=== PATIENT | female | born 1990 | race Caucasian/White ===

== ENCOUNTER 2017-12-24 14:01 | Emergency (ER) | END 2017-12-24 17:01 | disposition home or self-care (01) ==

== ENCOUNTER → 2018-03-27 | Outpatient (CLI) | END | disposition home or self-care (01) ==

== ENCOUNTER 2018-06-05 19:17 | Emergency (ER) | payer MEDICAID, OTHER ==
[~2018-06-05] VITALS: Ht 167.6 cm; Wt 80.8 kg
[~2018-06-05 19:17] MED LIST: CALC600T5 PO; CIPR500T4 PO; NITR-58 PO; PHEN-538 PO; PREN-39 PO
[2018-06-05 19:48] VITALS: Ht 167.6 cm; Wt 80.8 kg
[2018-06-05] MEDS ORDERED: GUAI-637 PO (22:22)
[2018-06-05] MEDS ORDERED: SODI126M NASAL (22:22)
[2018-06-05] MEDS ORDERED: ACET500C5 PO (22:22)
[2018-06-05 22:30] VITALS: BP 125/77; PULSE 74; RESP 16
--- NOTE | 2018-06-06 02:20 | ERD ---
ER Documentation Chief Complaint Chief Complaint cough/fever x 2 days, states 17 weeks HPI 28-year-old female who is approximately 17 weeks presents the ED complaining of cough and subjective fever times 2 days. Patient did not check her temperature at home. She took Tylenol for fever, last dose was at 6 PM, 2 hours ago. Patient states that she is coughing so much, now she has pelvic pain. She is concerned about the fetus. Patient is , LMP 01/31/2018. Denies history of asthma. Denies any other medical history. Denies shortness of breath. Denies abdominal pain, vomiting, or diarrhea. Denies vaginal bleeding. ROS All systems reviewed and are negative except as per history of present illness. Medications Home Meds Active Scripts Guaifenesin* (Robitussin*) 100 Mg/5 Ml Syrup, 200 MG PO Q6H PRN for COUGH, #120 ML Prov:VLADISLAV PITTS NP 06/05/18 Sodium Chloride (Saline Nasal Mist) 126 Ml Mist, 2 SPRAY NASAL Q2H PRN for NASAL CONGESTION, #1 BOTTLE Prov:VLADISLAV PITTS NP 06/05/18 Acetaminophen* (Tylophen*) 500 Mg Capsule, 1 CAP PO Q6H PRN for PAIN AND OR ELEVATED TEMP, #20 CAP Prov:VLADISLAV PITTS NP 06/05/18 Nitrofurantoin Monohyd Macrocr* (Macrobid*) 100 Mg Capsr, 100 MG PO BID for 5 Days, CAP Prov:LISA MAE PA-C 12/24/17 Phenazopyridine Hcl* (Pyridium*) 200 Mg Tab, 200 MG PO TID PRN for URINARY PAIN, #6 TAB Prov:RADHA ASENCIO NP 11/01/15 Ciprofloxacin Hcl* (Ciprofloxacin Hcl*) 500 Mg Tablet, 500 MG PO BID for 7 Days, TAB Prov:RADHA ASENCIO NP 11/01/15 Nitrofurantoin Monohyd Macrocr* (Macrobid*) 100 Mg Capsr, 100 MG PO BID for 7 Days, CAP Prov:RADHA ASENCIO NP 01/26/15 Reported Medications Calcium Carbonate (CALCIUM) 600 Mg Tablet, 600 MG PO DAILY 04/03/13 Vits W-Ca,Fe,Fa(<1MG) ( Vitamins) 1 Tab Tablet, 1 TAB PO DAILY 04/03/13 Allergies Allergies: Coded Allergies: aspirin (Verified Allergy, Unknown, FACE SWELLS, 01/25/15) PMhx/Soc History of Surgery: Yes (gallbladder removed) Anesthesia Reaction: No Hx Neurological Disorder: No Hx Respiratory Disorders: No Hx Cardiac Disorders: No Hx Psychiatric Problems: No Hx Miscellaneous Medical Probl: No Hx Alcohol Use: Yes (occasional) Hx Substance Use: No Hx Tobacco Use: No Smoking Status: Never smoker Physical Exam Vitals Vital Signs Date Temp Pulse Resp B/P (MAP) Pulse Ox O2 O2 Flow FiO2 Time Delivery Rate 06/05/18 98.3 74 16 125/77 100 Room Air 22:30 (93) 06/05/18 99.8 107 20 130/77 100 19:48 (94) Physical Exam General: Well-developed, well-nourished, conscious and coherent, in no distress Skin: Warm and dry without rash, good texture and turgor Head: Normocephalic without evidence of trauma Eyes: Sclera and conjunctivae normal; pupils equal, round, and reactive to light; extraocular movements are intact Ears: Canals are patent. Tympanic membranes are clear Nose/Face: Clear rhinorrhea Mouth/throat: Mucous membranes are moist. Posterior pharynx clear without erythema or exudates Neck: Supple without meningismus or adenopathy. Carotids are equal. Trachea midline. No bruits or JVD Chest: Normal AP diameter. Good expansion without retractions. Nontender. Lungs are clear to auscultate bilaterally with good tidal volume Heart: Regular rate and rhythm. No murmur, rub, or gallops heard Abdomen: Soft and nontender without masses, guarding, or rebound. Bowel sounds are active. No hepatosplenomegaly Extremities: Full range of motion. Good strength bilaterally. No erythema, ecchymosis, or edema. Peripheral pulses are intact. Sensation intact Neuro: Alert and oriented 4, GCS 15. Cranial nerves grossly intact. Moves all extremities. Speech clear. Gait normal Results 24 hrs PROCEDURE: US OB. CLINICAL INDICATION: Pelvic pain TECHNIQUE: Transabdominal obstetrical sonographic evaluation was performed. COMPARISON: Obstetrical sonogram dated 05/03/2018. FINDINGS: There is a single living intrauterine gestation with variable presentation and posterior placenta. There is no evidence of placenta previa or abruption. There is a moderate amount of amniotic fluid. heart rate of 157 beats per minute was detected during this examination. BPD = 4 cm, 18 weeks and 0 day HC = 14.3 cm, 17 weeks and 4 days AC = 11.8 cm, 17 weeks and 4 days FL = 2.4 cm, 17 weeks and 2 days Based on four parameters of biparietal diameter, head circumference, abdominal circumference and femoral head, estimated gestational age only based on this study is 17 weeks and 4 days +/- 1 week and 2 days. Estimated date of confinement based on this examination is 11/09/2018. Estimated weight is 194 +/- 29 grams, at 21st percentile based on this examination. IMPRESSION: 1. Single living intrauterine gestation with estimated gestational age of 17 weeks and 4 days +/- 1 week and 2 days, as above. RPTAT:HAJM Physician Pia Date Time Electronically viewed and signed by Luh Candelario Physician on 06/05/2018 22:03 RM/ CC: VLADISLAV PITTS. CODING ASSISTANT Procedures/MDM Well-appearing 28-year-old female presents the ED with cough and subjective fever times 2 days. Patient is currently afebrile, in no respiratory distress. Lungs are clear to auscultate. I doubt that patient has pneumonia or bronchitis. Likely patient's symptoms are result of viral upper respiratory infection. Patient is approximately 17 weeks , complaining of pelvic pain due to cough. OB ultrasound was obtained, which showed normal intrauterine with healthy heart rate. I doubt threatened . Patient is reassured. Patient appears well, stable for discharge and outpatient management. Medical decision making shared with patient and family. Education provided to patient and family. Patient and family expressed understanding of the plan. Medications on discharge: Tylenol, saline nasal spray, Robitussin. Follow-up: Primary care provider in 2-3 days or return to ED if worse. Disclaimer: Inadvertent spelling and grammatical errors are likely due to EHR/dictation software use and do not reflect on the overall quality of patient care. Also, please note that the electronic time recorded on this note does not necessarily reflect the actual time of the patient encounter. Departure Diagnosis: Primary Impression: Pelvic pain affecting Additional Impression: URI (upper respiratory infection) Condition: Stable Patient Instructions: Adult Self-Care for Colds, Pelvic Pain In : Unclear (2-3 Trimester) Referrals: [facility] YOU HAVE RECEIVED A MEDICAL SCREENING EXAM AND THE RESULTS INDICATE THAT YOU DO NOT HAVE A CONDITION THAT REQUIRES URGENT TREATMENT IN THE EMERGENCY DEPARTMENT. FURTHER EVALUATION AND TREATMENT OF YOUR CONDITION CAN WAIT UNTIL YOU ARE SEEN IN YOUR DOCTORS OFFICE WITHIN THE NEXT 1-2 DAYS. IT IS YOUR RESPONSIBILITY TO MAKE AN APPOINTMENT FOR FOLOW-UP CARE. IF YOU HAVE A PRIMARY DOCTOR --you should call your primary doctor and schedule an appointment IF YOU DO NOT HAVE A PRIMARY DOCTOR YOU CAN CALL OUR PHYSICIAN REFERRAL HOTLINE AT IF YOU CAN NOT AFFORD TO SEE A PHYSICIAN YOU CAN CHOSE FROM THE FOLLOWING [facility] [address] [facility] [address] [facility] [facility] [address] [facility] [address] [facility] [address] [facility] [facility]. [address] Additional Instructions: Call your primary care doctor TOMORROW for an appointment during the next 2-3 days.See the doctor sooner or return here if your condition worsens before your appointment time. VLADISLAV PITTS NP Jun 06, 2018 02:20
== END 2018-06-05 22:43 | disposition home or self-care (01) ==
LOC: FTE 19:17
DX: O26.892 Other specified pregnancy related conditions, second trimester (principal); R40.2412 Glasgow coma scale score 13-15, at arrival to emergency department; O99.512 Diseases of the respiratory system complicating pregnancy, second trimester; R10.2 Pelvic and perineal pain; Z3A.17 17 weeks gestation of pregnancy
CPT/HCPCS: 76805

== ENCOUNTER 2018-11-04 20:40 | Outpatient (CLI) | payer OTHER ==
[~2018-11-04] VITALS: Ht 170.2 cm; Wt 94.7 kg
[~2018-11-04 20:40] MED LIST changes: +ACET500C5 PO; +GUAI-637 PO; +SODI126M NASAL
[2018-11-04 21:00] VITALS: BP 134/79; PULSE 86; RESP 20; Ht 170.2 cm; Wt 94.7 kg
--- NOTE | 2018-11-05 00:59 | PN ---
Triage Information Date/Time 11/05/2018 Reason for visit: Patient self-referred herself to OB triage for episodes of diarrhea times half a day which stopped spontaneously Weeks of Gestation 39 weeks and 3 days /Para 2 para 1 Diabetes: none Hypertention: none Objective Heart Rate: 140's Heart Rate Comments Active Contractions: >10 Minutes Apart Exam Cervix is 3040% effaced 2 cm open posterior and firm Results/Medications Imaging Results Biophysical profile 8 out of 8. Disposition: Discharge Assessment/Plan Patient did not have cervical change after 2 hours of walking with almost total cessation of contractions She was not complaining of diarrhea anymore Decision was made to follow patient as outpatient RIANA MACK MD November 05, 2018 00:59
--- NOTE | 2018-11-05 01:36 | TRIAGE ---
OB Triage Datetime Report Generated by CPN: 11/05/2018 01:36 Datetime: 11/05/2018 01:05 Stage of : OB Triage Datetime: 11/05/2018 00:55 Vaginal Exam Dilatation (cms): 2.5 Effacement (%): 50 Station: -2 Exam By: Dr. Adolfo Datetime: 11/05/2018 00:50 Stage of : Labor Labor Evaluation Frequency: 2-4 with irritability Monitor Mode: External Duration (sec)2399: 40-60 Pattern: Normal: <= 5 Contractions in 10 Minutes Resting Tone [place]: Relaxed Heart Rate FHR Baseline Rate: 135 Monitor Mode: External US Variability: Moderate 6-25 bpm Accelerations: 15X15 Decelerations: None Category: Category I Datetime: 11/05/2018 00:00 Stage of : Labor Labor Evaluation Frequency: 2-4 with irritability Monitor Mode: External Duration (sec)2399: 40-60 Pattern: Normal: <= 5 Contractions in 10 Minutes Resting Tone [place]: Relaxed Heart Rate FHR Baseline Rate: 135 Monitor Mode: External US Variability: Moderate 6-25 bpm Accelerations: 15X15 Decelerations: None Category: Category I Datetime: 11/04/2018 23:40 Monitor Mode: External Monitor Mode: External US Datetime: 11/04/2018 22:30 Stage of : Labor Labor Evaluation Frequency: 2-4 Monitor Mode: External Duration (sec)2399: 40-60 Pattern: Normal: <= 5 Contractions in 10 Minutes Resting Tone [place]: Relaxed Heart Rate FHR Baseline Rate: 135 Monitor Mode: External US Variability: Moderate 6-25 bpm Accelerations: 15X15 Decelerations: None Category: Category I Datetime: 11/04/2018 22:00 Stage of : OB Triage Maternal Assessment Level of Consciousness: Fully Conscious DTR's/Clonus: DTRs 2+; No Clonus Headache: Denies Blurred Vision: No Respiratory Effort: Unlabored; Regular Rhythm; Equal Expansion Breath Sounds, Left: Clear and Equal Breath Sounds, Right: Clear and Equal Nausea/Vomiting: Denies RUQ Epigastric Pain: Denies Facial Edema: None Temperature Route: Axillary Fall Risk Assessment History of Falling: (0) No Secondary Diagnosis: (0) No Ambulatory Aid: (0) Bedrest/Nurse Assist IV Therapy: (0) No Gait: (0) Normal/Bedrest/Immobile Mental Status: (0) Oriented to Own Ability Fall Score: 0 Fall Risk Score Definition: No Risk: No action required Datetime: 11/04/2018 21:50 Stage of : Labor Labor Evaluation Frequency: 2-4 Monitor Mode: External Duration (sec)2399: 40-60 Pattern: Normal: <= 5 Contractions in 10 Minutes Resting Tone [place]: Relaxed Heart Rate FHR Baseline Rate: 140 Monitor Mode: External US Variability: Moderate 6-25 bpm Accelerations: 15X15 Decelerations: None Category: Category I Datetime: 11/04/2018 21:10 Stage of : OB Triage Vaginal Exam Dilatation (cms): 2.5 Effacement (%): 50 Station: -3 Exam By: Dr. Martinez Datetime: 11/04/2018 20:35 Time of Arrival: 11/04/2018 20:35 EGA: 39.3 Arrived By: Wheelchair Arrived From: Home Chief Complaint: Diarrhea _ abdominal pain Movement: Present Contractions: Irregular Time Contractions Began: 11/04/2018 16:00 Rupture of Membranes: Denies Vaginal Bleeding: None Vaginal Discharge: Denies Recent Sexual Intercouse: Denies Abdominal Trauma: Not Applicable Patient Complaints: Contractions Time Provider Notified: 11/04/2018 21:10 Provider Notified: Michelle Initial Plan: EFW, BPP, ambulate x2hrs
== END 2018-11-05 01:05 | disposition home or self-care (01) ==
LOC: OBT 20:40 → L-D 20:42 → OBT 11-05 01:05
PROVIDERS: ATTEND Obstetrics & Gynecology
DX: O26.893 Other specified pregnancy related conditions, third trimester (principal); R19.7 Diarrhea, unspecified; Z3A.39 39 weeks gestation of pregnancy
CPT/HCPCS: 76818; Z7500; G0463

== ENCOUNTER 2018-11-08 11:32 | Outpatient (CLI) | payer OTHER ==
[~2018-11-08] VITALS: Ht 170.2 cm; Wt 94.5 kg
[2018-11-08 12:49] VITALS: Ht 170.2 cm; Wt 94.5 kg
[2018-11-08 12:50] VITALS: BP 127/59; PULSE 104; RESP 18
--- NOTE | 2018-11-08 13:42 | PN ---
Triage Information Date/Time 11/08/2018 Reason for visit: Weeks of Gestation 40 /Para 3 P1 Diabetes: none Hypertention: none Objective Vital Signs Date Temp Pulse Resp B/P (MAP) Pulse Ox O2 O2 Flow FiO2 Time Delivery Rate 11/08/18 97.9 104 18 127/59 12:50 (81) Heart Rate: 140's Contractions: < 5 Minutes Apart Results/Medications Imaging Results Estimated weight is 3739 +/- 561 grams Single living intrauterine gestation with cephalic presentation. Biophysical profile = 01/23. KAYLYN = 14.4 cm. RIANA MACK MD November 08, 2018 13:42
--- NOTE | 2018-11-08 13:45 | PN ---
Triage Information Date/Time 11/08/2018 Reason for visit: Weeks of Gestation 40 weeks /Para 3 para 1 Diabetes: none Hypertention: none Objective Vital Signs Date Temp Pulse Resp B/P (MAP) Pulse Ox O2 O2 Flow FiO2 Time Delivery Rate 11/08/18 97.9 104 18 127/59 12:50 (81) Heart Rate: 140's Heart Rate Comments Reactive Contractions: 6-10 Minutes Apart Exam Long and 1 cm Results/Medications Imaging Results Patient with normal biophysical profile and estimation of weight of over 3700 g ultrasound Disposition: Discharge Assessment/Plan Patient does not want induction of labor regardless of the dangers mentioned Will.reevaluate in 48 hours RIANA MACK MD November 08, 2018 13:44
--- NOTE | 2018-11-08 14:45 | TRIAGE ---
OB Triage Datetime Report Generated by CPN: 11/08/2018 14:45 Datetime: 11/08/2018 13:53 Stage of : OB Triage Datetime: 11/08/2018 13:39 Vaginal Exam Dilatation (cms): 1.0 Effacement (%): 50 Station: -2 Exam By: S JUVENTINO Vaginal Bleeding: None Cervix, Consistency: Soft Cervix, Position: Midposition Presentation 'A': Cephalic Datetime: 11/08/2018 13:36 Stage of : OB Triage Datetime: 11/08/2018 13:15 Labor Evaluation Frequency: 4-6 Monitor Mode: External Duration (sec)2399: 50-70 Quality: Mild Pattern: Normal: <= 5 Contractions in 10 Minutes Resting Tone [place]: Relaxed Heart Rate FHR Baseline Rate: 135 Monitor Mode: External US Variability: Moderate 6-25 bpm Accelerations: 10X10 Decelerations: None Category: Category I Pain Assessment Pain Scale: 0 Pain Presence: None/Denies Pain Type: N/A Pain Goal: 3 Pain Relief Measures: Comfort Measures Datetime: 11/08/2018 12:14 Stage of : OB Triage Assessment Type: Triage Maternal Assessment Level of Consciousness: Fully Conscious DTR's/Clonus: DTRs 2+; No Clonus Headache: Denies Blurred Vision: No Respiratory Effort: Unlabored; Regular Rhythm; Equal Expansion Breath Sounds, Left: Clear and Equal Breath Sounds, Right: Clear and Equal Nausea/Vomiting: Denies RUQ Epigastric Pain: Denies Facial Edema: None Temperature Route: Axillary Fall Risk Assessment History of Falling: (0) No Secondary Diagnosis: (0) No Ambulatory Aid: (0) Bedrest/Nurse Assist IV Therapy: (0) No Gait: (0) Normal/Bedrest/Immobile Mental Status: (0) Oriented to Own Ability Fall Score: 0 Fall Risk Score Definition: No Risk: No action required Labor Evaluation Frequency: 5-6 Monitor Mode: External Duration (sec)2399: 50-60 Quality: Mild Pattern: Normal: <= 5 Contractions in 10 Minutes Heart Rate FHR Baseline Rate: 145 Monitor Mode: External US Variability: Moderate 6-25 bpm Accelerations: 10X10 Decelerations: None Category: Category I Pain Assessment Pain Scale: 0 Pain Presence: None/Denies Pain Type: N/A Pain Goal: 3 Pain Relief Measures: Comfort Measures Datetime: 11/08/2018 12:12 Time of Arrival: 11/08/2018 11:30 EGA: 40.0 Arrived By: Ambulatory Arrived From: Home Chief Complaint: REFERRED FROM OFFICE FOR POST DATES, BPP EFW Movement: Present Contractions: Denies/Absent Rupture of Membranes: Denies Vaginal Bleeding: None Vaginal Discharge: Denies Recent Sexual Intercouse: Denies Abdominal Trauma: Not Applicable Patient Complaints: Cramping Time Provider Notified: 11/08/2018 13:36 Provider Notified: peter Initial Plan: MONITOR, BPP, EFW Datetime: 11/04/2018 22:00 Fall Score: 0 Fall Risk Score Definition: No Risk: No action required Datetime: 11/04/2018 20:35 EGA: 39.3
== END 2018-11-08 14:00 | disposition home or self-care (01) ==
LOC: OBT 11:32 → L-D 11:33 → OBT 14:00
PROVIDERS: ATTEND Obstetrics & Gynecology
DX: O48.0 Post-term pregnancy (principal); Z3A.40 40 weeks gestation of pregnancy
CPT/HCPCS: 76816; 76818; Z7500; G0463

== ENCOUNTER 2018-11-10 18:05 | Outpatient (CLI) | payer OTHER ==
[~2018-11-10] VITALS: Ht 170.2 cm; Wt 96.3 kg
[2018-11-10 18:09] VITALS: Ht 170.2 cm; Wt 96.3 kg
--- NOTE | 2018-11-10 19:56 | TRIAGE ---
OB Triage Datetime Report Generated by CPN: 11/10/2018 19:55 Datetime: 11/10/2018 19:42 Labor Evaluation Frequency: 4-5 Monitor Mode: External Duration (sec)2399: 50-90 Quality: Mild Pattern: Normal: <= 5 Contractions in 10 Minutes Resting Tone [place]: Relaxed Contraction Comments: PT DENIES FEELING UC'S Heart Rate FHR Baseline Rate: 135 Monitor Mode: External US Variability: Moderate 6-25 bpm Accelerations: 15X15 Decelerations: None Category: Category I Datetime: 11/10/2018 19:05 Vaginal Exam Dilatation (cms): 1.5 Effacement (%): 50 Station: -2 Exam By: SERGIO MARES Vaginal Bleeding: None Cervix, Consistency: Soft Cervix, Position: Midposition Datetime: 11/10/2018 18:18 Maternal Assessment Level of Consciousness: Fully Conscious DTR's/Clonus: DTRs 1+ Headache: Denies Blurred Vision: No Respiratory Effort: Unlabored Breath Sounds, Left: Clear and Equal Breath Sounds, Right: Clear and Equal Nausea/Vomiting: Denies RUQ Epigastric Pain: Denies Facial Edema: None Labor Evaluation Frequency: NONE Monitor Mode: External Resting Tone [place]: Relaxed Heart Rate FHR Baseline Rate: 135 Monitor Mode: External US Variability: Moderate 6-25 bpm Accelerations: 15X15 Decelerations: None Category: Category I Pain Assessment Pain Scale: 0 Pain Presence: None/Denies Pain Type: N/A Pain Goal: 3 Membrane Status: Intact Datetime: 11/10/2018 18:15 Assessment Type: Triage Maternal Assessment Level of Consciousness: Fully Conscious DTR's/Clonus: DTRs 2+; No Clonus Headache: Denies Blurred Vision: No Respiratory Effort: Unlabored; Regular Rhythm; Equal Expansion Breath Sounds, Left: Clear and Equal Breath Sounds, Right: Clear and Equal Nausea/Vomiting: Denies RUQ Epigastric Pain: Denies Lower Extremities Edema: None Degree: None Upper Extremities Edema: None Degree: None Facial Edema: None Fall Risk Assessment History of Falling: (0) No Secondary Diagnosis: (0) No Ambulatory Aid: (0) Bedrest/Nurse Assist IV Therapy: (0) No Gait: (0) Normal/Bedrest/Immobile Mental Status: (0) Oriented to Own Ability Fall Score: 0 Fall Risk Score Definition: No Risk: No action required Datetime: 11/10/2018 18:02 Time of Arrival: 11/10/2018 18:02 EGA: 40.2 Arrived By: Ambulatory Arrived From: Home Chief Complaint: PT CAME IN FROM HOME FOR NST BPP F/U FOR POSTDATES Movement: Present Contractions: Denies/Absent Rupture of Membranes: Denies Vaginal Discharge: Denies Recent Sexual Intercouse: Denies Abdominal Trauma: Not Applicable Additional Patient Complaints: NONE Time Provider Notified: 11/10/2018 18:30 Provider Notified: MATIAS Initial Plan: NST AND BPP Datetime: 11/08/2018 14:42 Vaginal Bleeding: None Vaginal Discharge: Denies Recent Sexual Intercouse: Denies Datetime: 11/08/2018 12:14 Fall Score: 0 Fall Risk Score Definition: No Risk: No action required Datetime: 11/08/2018 12:12 EGA: 40.0 Datetime: 11/04/2018 22:00 Fall Score: 0 Fall Risk Score Definition: No Risk: No action required Datetime: 11/04/2018 20:35 EGA: 39.3
--- NOTE | 2018-11-10 20:01 | PN ---
Triage Information Date/Time November 10, 2018 Reason for visit: Postdates Weeks of Gestation 40w 2d /Para 2/1 Diabetes: none Hypertention: none Additional information No bleeding or leaking. Pt had her 1st baby after her due date, around this time, and she went into labor on her own. PMHx: none. PSHx: none. All: ASA. Objective BP 131/81 T=98.4 Heart Rate: 130's Heart Rate Comments Accels to 160 BPM. No decels. Contractions: >10 Minutes Apart Exam 50%/1-2 cm/-2 ( per pt, she has been examined my me and Dr Mata within the last week and she was 2-3 cm, at the time) Results/Medications Imaging Results BPP 01/23 with an 9.6 cm. VTX. EFW froma few days ago was 3739 grams. Disposition: Discharge Assessment/Plan A: IUP at 40w 2d. Postdates. P: D/C home. Per Dr Mata, to return for a f/u BPP/NST in 48 hours. kick counts reviewed as well as labor precautions. VANESSA WILSON MD November 10, 2018 20:01
== END 2018-11-10 19:48 | disposition home or self-care (01) ==
LOC: OBT 18:05 → L-D 18:06 → OBT 19:48
PROVIDERS: ATTEND Obstetrics & Gynecology
DX: O48.0 Post-term pregnancy (principal); Z3A.40 40 weeks gestation of pregnancy
CPT/HCPCS: 76818; G0463

== ENCOUNTER 2018-11-25 12:11 | Emergency (ER) | payer OTHER ==
[~2018-11-25] VITALS: Ht 167.6 cm; Wt 86.5 kg
[~2018-11-25 12:11] MED LIST changes: -ACET500C5 PO; -CALC600T5 PO; -CIPR500T4 PO; -GUAI-637 PO; -NITR-58 PO; -PHEN-538 PO; -SODI126M NASAL
[2018-11-25 12:26] VITALS: BP 141/85; PULSE 69; RESP 18; Ht 167.6 cm; Wt 86.5 kg
[2018-11-25] MEDS ORDERED: DEXAMETHASONE 10 MG/ML 1 ML INJ IM ONE (14:00)
--- NOTE | 2018-11-25 15:36 | ERD ---
ER Documentation Chief Complaint Chief Complaint right upper thigh pain radiates to knee since this morning HPI History of Present Illness: 28-year-old female who denies a past medical history coming in today with complaint of pain to her right upper thigh this morning. Patient reports the pain is to her inner thigh and is a sharp consistency, rating 5/10, increased with walking. Patient had a childbirth on 11/13/2018 in which she had an epidural that was attempted 3 times. Patient reports a similar sensation in which she had severe pain during the epidural to the right lower extremity, but the pain that is currently present is not as severe as during the epidural procedure. At home pharmacological/nonpharmacological treatment for symptoms: Denies social concerns; Denies recent foreign travel ROS All systems reviewed and are negative except as per history of present illness. Medications Home Meds Reported Medications Vits W-Ca,Fe,Fa(<1MG) ( Vitamins) 1 Tab Tablet, 1 TAB PO DAILY 04/03/13 Allergies Allergies: Coded Allergies: aspirin (Verified Allergy, Unknown, FACE SWELLS, 11/10/18) PMhx/Soc History of Surgery: Yes (CHOLECYSTECTOMY) Anesthesia Reaction: No Hx Neurological Disorder: No Hx Respiratory Disorders: No Hx Cardiac Disorders: No Hx Psychiatric Problems: No Hx Miscellaneous Medical Probl: No Hx Alcohol Use: Yes (occasional) Hx Substance Use: No Hx Tobacco Use: No Smoking Status: Never smoker FmHx Family History: diabetes; No coronary disease Physical Exam Vitals Vital Signs Date Temp Pulse Resp B/P (MAP) Pulse Ox O2 O2 Flow FiO2 Time Delivery Rate 11/25/18 98.7 69 18 141/85 98 12:26 (103) Physical Exam Const: No acute distress Head: Atraumatic Eyes: Normal Conjunctiva ENT: Normal External Ears, Nose and Mouth. Neck: Full range of motion. No meningismus. Resp: Clear to auscultation bilaterally Cardio: Regular rate and rhythm, no murmurs Abd: Soft, non tender, non distended. Normal bowel sounds Skin: No petechiae or rashes Back: No midline or flank tenderness, no palpable hematoma mass or masses Ext: No cyanosis, or edema; unable to reproduce pain to right lower extremity thigh area with palpation Neur: Awake and alert, cranial nerves intact, no neuro deficits, full strength in drapery hanger, no decreased sensation Psych: Normal Mood and Affect Results 24 hrs Current Medications Medications Dose Sig/Saumya Start Time Status Last (Trade) Ordered Route PRN Stop Time Admin Dose Reason Admin 10 mg ONCE ONCE 11/25/18 DC 11/25/18 Dexamethasone IM 14:00 14:06 (Decadron) 11/25/18 14:01 Procedures/MDM ED course includes a thorough examination and history. Medications: Dexamethasone Imaging: Labs: Low suspicion for life-threatening medical emergency. Low suspicion for neurological emergency. Otherwise healthy patient presenting with constellation of symptoms likely representing right lower extremity pain possibly secondary to sciatica as characterized by history, physical exam findings. Patient reassessment: Patient hemodynamically stable. No respiratory distress, otherwise relatively well appearing and nontoxic. Disposition given. Patient educated on diagnoses, prescriptions, follow-up care, return precautions. Strict return precautions given for worsening condition; questions answered discharge. Patient verbalizes understanding of plan of care and discharge instructions as well as return precautions and follow-up care. Disposition for discharge with followup in 2 days with PCP/clinic. Departure Diagnosis: Primary Impression: History of epidural anesthesia Additional Impression: Pain of right leg Condition: Stable Patient Instructions: What Is Epidural Anesthesia? Referrals: [facility] (PCP) Additional Instructions: Thank you very much for allowing us to participate in your care. Your health and safety is our top priority at [facility]. It is important to read all discharge instructions and education provided in your discharge packet. If the symptoms get worse and your provider is unavailable, return to the Emergency Department immediately. JAMAR LOAIZA NP Nov 25, 2018 15:36
== END 2018-11-25 14:24 | disposition home or self-care (01) ==
LOC: FTE 12:11
DX: O90.89 Other complications of the puerperium, not elsewhere classified (principal); M79.604 Pain in right leg; Z92.84 Personal history of unintended awareness under general anesthesia
CPT/HCPCS: 96372; J1100; Z7502

== ENCOUNTER 2019-01-28 11:49 | Emergency (ER) | payer MEDICAID, OTHER ==
[~2019-01-28] VITALS: Ht 167.6 cm; Wt 88.0 kg
[2019-01-28 11:56] VITALS: Ht 167.6 cm; Wt 88.0 kg
--- NOTE | 2019-01-28 13:46 | ERD ---
ER Documentation Chief Complaint Chief Complaint pt is bib family with c/o chest pain starting today, no other symptoms HPI Is a 28-year-old female presents with left-sided chest pain that radiates to her left upper extremity. She states it started today when she woke up. She has no cardiac past medical history. She also felt a little short of breath. She states the chest pain has now resolved but she still has some left upper extremity pain. She has no palpitations. She does states she has history of anxiety but she does not feel anxious. No trauma. No smoking alcohol or drugs. ROS All systems reviewed and are negative except as per history of present illness. Medications Home Meds Reported Medications Vits W-Ca,Fe,Fa(<1MG) ( Vitamins) 1 Tab Tablet, 1 TAB PO DAILY 04/03/13 Allergies Allergies: Coded Allergies: aspirin (Verified Allergy, Unknown, FACE SWELLS, 11/10/18) PMhx/Soc History of Surgery: Yes (CHOLECYSTECTOMY) Anesthesia Reaction: No Hx Neurological Disorder: No Hx Respiratory Disorders: No Hx Cardiac Disorders: No Hx Psychiatric Problems: No Hx Miscellaneous Medical Probl: No Hx Alcohol Use: Yes (occasional) Hx Substance Use: No Hx Tobacco Use: No FmHx Family History: No diabetes Physical Exam Vitals Vital Signs Date Temp Pulse Resp B/P (MAP) Pulse Ox O2 O2 Flow FiO2 Time Delivery Rate 01/28/19 98.3 71 16 139/72 98 11:56 (94) Physical Exam INITIAL VITAL SIGNS: Reviewed by me GENERAL: Awake, alert and oriented x 4, well appearing, nontoxic, speaking in full sentences. No acute distress HEAD: Atraumatic NECK: Supple. No masses. Full range of motion. No meningismus. No midline tenderness. RESPIRATORY: Clear to auscultation bilaterally. Symmetric chest wall rise. No wheezing or rales. No accessory muscle use. CV: Regular rate and rhythm. No murmurs, rubs, or gallops. ABDOMEN: Soft, non-distended. Nontender. Negative [place]. Negative McBurneys point tenderness. No CVA tenderness bilaterally. No guarding. No rebound. Results 24 hrs Laboratory Tests Test 01/28/19 13:35 POC Beta HCG, Qualitative NEGATIVE Procedures/MDM The differential diagnosis includes but is not limited to acute coronary syndrome acute myocardial infarction, pericarditis, pulmonary embolism, aortic d issection, pneumonia, pleural effusion, pneumothorax, GERD, chest wall pain, and others. EKG is within normal limits. Chest x-ray negative. Patient counseled regarding my diagnostic impression and care plan. Prior to discharge all questions answered. Pt agrees with treatment plan and understands strict return precautions. Pt is instructed to follow up with primary care provider within 24- 48 hours. Precautionary instructions provided including instructions to return to the ER if not improving or for any worsening or changing symptoms or concerns. Departure Diagnosis: Primary Impression: Atypical chest pain Condition: Stable Patient Instructions: Chest Pain, Uncertain Cause Additional Instructions: Call your primary care doctor TOMORROW for an appointment during the next 1-2 days.See the doctor sooner or return here if your condition worsens before your appointment time. SUBHASH ARCEO PA-C Jan 28, 2019 13:46
[2019-01-28 14:36] VITALS: BP 124/68; PULSE 64; RESP 16
== END 2019-01-28 14:39 | disposition home or self-care (01) ==
LOC: FTE 11:49
DX: R07.89 Other chest pain (principal)
CPT/HCPCS: 71045; 81025; Z7502

== ENCOUNTER 2019-04-23 18:35 | Emergency (ER) | payer MEDICAID ==
[~2019-04-23] VITALS: Ht 170.2 cm; Wt 90.2 kg
[~2019-04-23 18:35] MED LIST changes: +IBUP-1542 PO
[2019-04-23 18:40] VITALS: BP 146/86; PULSE 78; RESP 18; Ht 170.2 cm; Wt 90.2 kg
== END 2019-04-23 19:29 | disposition home or self-care (01) ==
LOC: FTE 18:35 → E/R 19:29
DX: R07.9 Chest pain, unspecified (principal)
CPT/HCPCS: 71045; Z7502; 93005